=== PATIENT | male | born 1990 | race Caucasian/White ===

== ENCOUNTER 2022-07-22 11:30 | Emergency (ER) | payer MEDICAID, SELFPAY ==
[~2022-07-22] VITALS: Ht 182.9 cm; Wt 86.0 kg
[~2022-07-22 11:30] MED LIST: CEPH-571 PO; MARIJUANA
[2022-07-22 11:52] VITALS: BP 132/72
[2022-07-22] MEDS ORDERED: NEO/5DRO7 LEFTEYE (14:14)
== END 2022-07-22 14:37 | disposition home or self-care (01) ==
LOC: ER 11:31
DX: H10.9 Unspecified conjunctivitis (principal); F12.90 Cannabis use, unspecified, uncomplicated; Z72.89 Other problems related to lifestyle; Z79.899 Other long term (current) drug therapy
CPT/HCPCS: 99283

== ENCOUNTER 2023-07-11 14:23 | Emergency (ER) | payer MEDICAID ==
[~2023-07-11 14:23] MED LIST changes: +NEO/5DRO7 LEFTEYE
== END 2023-07-11 16:06 | disposition left against medical advice (07) ==
LOC: ER 14:24
DX: M79.10 Myalgia, unspecified site (principal); Z53.21 Procedure and treatment not carried out due to patient leaving prior to being seen by health care provider